=== PATIENT | female | born 1970 | race African-American/Black ===

== ENCOUNTER 2017-08-10 10:54 | Emergency (ER) | payer OTHER ==
[2017-08-10] MEDS: LIDOCAINE WITH 8.4% SOD BICARB 3 ML DISP.SYRIN. IJ (11:35)
[2017-08-10] MEDS: HYDROcodone/APAP 5/325MG 1 TAB TABLET PO (12:17)
== END 2017-08-10 12:20 | disposition home or self-care (01) ==
LOC: ER 10:54
DX: L02.512 Cutaneous abscess of left hand (principal); I10 Essential (primary) hypertension; M06.9 Rheumatoid arthritis, unspecified
CPT/HCPCS: 10060; 87071; 87075; 87186; 87205; 99284-25